=== PATIENT | female | born 1935 | race Caucasian/White ===

== ENCOUNTER → 2020-10-24 18:40 | Outpatient (CLI) | payer MEDICARE ==
[2020-10-24 20:17] LABS: BASOPHILS 0.4 % (0-2); EOSINOPHILS 3.2 % (0-7); HEMOGLOBIN 11.9 g/dL (12-16); IMMATURE GRANULOCYTES 0.5 % (0-5); LYMPHOCYTE ABS# 1.12 10x3/uL (1.18-3.74); LYMPHOCYTES 15.1 % (15-50); MCH 28.7 pg (26.0-34.0); MCHC 31.3 g/dL (31.0-37.0); MCV 91.8 fL (80.0-100.0); MEAN PLATELET VOLUME 12.2 fL (7.4-10.4); MONOCYTES 8.6 % (2-11); NEUTROPHIL ABS# 5.35 10x3/uL (1.56-6.13); NEUTROPHILS 72.2 % (40-80); RBC 4.14 10x6/uL (4.00-5.40); RDW 15.8 % (11.5-14.5); WBC 7.4 10x3/uL (4.8-10.8)
[2020-10-24 20:35] LABS: PLATELET COUNT 343 10x3/uL (130-400)
[2020-10-24 21:29] LABS: ALBUMIN 2.5 g/dL (3.4-5.0); ANION GAP 13.5 mmol/L (8-16); BILIRUBIN - TOTAL 0.3 mg/dL (0.2-1.3); CALCIUM 8.8 mg/dL (8.5-10.1); CARBON DIOXIDE 26.5 mmol/L (21.0-32.0); CREATININE - SERUM 1.1 mg/dL (0.6-1.3); PROTEIN - SERUM 5.7 g/dL (6.4-8.2); THYROID STIMULATING HORMONE 1.83 uIU/mL (0.36-3.74)
== END | disposition home or self-care (01) ==
LOC: D.LABREF 18:40
PROVIDERS: ATTEND Family Medicine
DX: D64.9 Anemia, unspecified (principal); E03.9 Hypothyroidism, unspecified; I25.10 Atherosclerotic heart disease of native coronary artery without angina pectoris; N18.9 Chronic kidney disease, unspecified

== ENCOUNTER → 2020-11-11 17:55 | Outpatient (CLI) | payer MEDICARE ==
[2020-11-11 18:26] LABS: BILIRUBIN NEGATIVE (NEGATIVE); KETONE NEGATIVE (NEGATIVE); NITRITE NEGATIVE (NEGATIVE); UROBILINOGEN NORMAL mg/dL (< 2)
[2020-11-11 18:37] LABS: BACTERIA MODERATE HPF (NONE SEEN); SQUAMOUS EPITHELIAL 0-5 HPF (0-4)
== END | disposition home or self-care (01) ==
LOC: D.LABREF 17:55
PROVIDERS: ATTEND Family Medicine
DX: R30.0 Dysuria (principal)

== ENCOUNTER → 2020-11-15 18:19 | Outpatient (CLI) | payer MEDICARE ==
[2020-11-15 18:54] LABS: BASOPHILS 0.2 % (0-2); EOSINOPHILS 1.9 % (0-7); HEMATOCRIT 37.1 % (36.0-48.0); HEMOGLOBIN 11.8 g/dL (12-16); IMMATURE GRANULOCYTES 0.4 % (0-5); LYMPHOCYTES 9.7 % (15-50); MCH 28.6 pg (26.0-34.0); MCHC 31.8 g/dL (31.0-37.0); MCV 89.8 fL (80.0-100.0); MEAN PLATELET VOLUME 11.1 fL (7.4-10.4); MONOCYTES 7.2 % (2-11); NEUTROPHIL ABS# 9.97 10x3/uL (1.56-6.13); NEUTROPHILS 80.6 % (40-80); PLATELET COUNT 279 10x3/uL (130-400); RBC 4.13 10x6/uL (4.00-5.40); RDW 16.3 % (11.5-14.5); WBC 12.4 10x3/uL (4.8-10.8)
[2020-11-15 18:57] LABS: ALBUMIN 2.3 g/dL (3.4-5.0); ANION GAP 10.3 mmol/L (8-16); BILIRUBIN - TOTAL 0.16 mg/dL (0.2-1.3); CARBON DIOXIDE 28.5 mmol/L (21.0-32.0); CREATININE - SERUM 1.1 mg/dL (0.6-1.3); POTASSIUM - SERUM 3.8 mmol/L (3.5-5.1); PROTEIN - SERUM 5.8 g/dL (6.4-8.2)
== END | disposition home or self-care (01) ==
LOC: D.LABREF 18:19
PROVIDERS: ATTEND Family Medicine
DX: D64.9 Anemia, unspecified (principal); I25.10 Atherosclerotic heart disease of native coronary artery without angina pectoris; N18.9 Chronic kidney disease, unspecified

== ENCOUNTER → 2020-11-21 15:48 | Outpatient (CLI) | payer MEDICARE ==
[2020-11-21 16:04] LABS: BASOPHILS 0.4 % (0-2); EOSINOPHILS 4.4 % (0-7); HEMATOCRIT 35.2 % (36.0-48.0); HEMOGLOBIN 10.9 g/dL (12-16); IMMATURE GRANULOCYTES 0.1 % (0-5); LYMPHOCYTE ABS# 1.42 10x3/uL (1.18-3.74); LYMPHOCYTES 18.8 % (15-50); MCH 28.1 pg (26.0-34.0); MCV 90.7 fL (80.0-100.0); MEAN PLATELET VOLUME 12.2 fL (7.4-10.4); MONOCYTES 6.9 % (2-11); NEUTROPHIL ABS# 5.25 10x3/uL (1.56-6.13); NEUTROPHILS 69.4 % (40-80); PLATELET COUNT 297 10x3/uL (130-400); RBC 3.88 10x6/uL (4.00-5.40); RDW 16.9 % (11.5-14.5); WBC 7.6 10x3/uL (4.8-10.8)
[2020-11-21 16:19] LABS: ALBUMIN 2.1 g/dL (3.4-5.0); ANION GAP 9.7 mmol/L (8-16); BILIRUBIN - TOTAL 0.08 mg/dL (0.2-1.3); CALCIUM 9.2 mg/dL (8.5-10.1); CARBON DIOXIDE 28.8 mmol/L (21.0-32.0); CREATININE - SERUM 0.9 mg/dL (0.6-1.3); POTASSIUM - SERUM 3.5 mmol/L (3.5-5.1); PROTEIN - SERUM 5.4 g/dL (6.4-8.2)
[2020-11-21 16:24] LABS: BILIRUBIN NEGATIVE (NEGATIVE); KETONE NEGATIVE (NEGATIVE); NITRITE POSITIVE (NEGATIVE); UROBILINOGEN NORMAL mg/dL (< 2)
[2020-11-21 16:26] LABS: BACTERIA MANY HPF (NONE SEEN); SQUAMOUS EPITHELIAL 0-5 HPF (0-4)
== END | disposition home or self-care (01) ==
LOC: D.LABREF 15:48
PROVIDERS: Family Medicine
DX: N39.0 Urinary tract infection, site not specified (principal); K63.9 Disease of intestine, unspecified; D64.9 Anemia, unspecified; N18.9 Chronic kidney disease, unspecified

== ENCOUNTER → 2020-12-06 12:07 | Outpatient (CLI) | payer MEDICARE ==
[2020-12-06 13:33] LABS: BILIRUBIN NEGATIVE (NEGATIVE); KETONE NEGATIVE (NEGATIVE); NITRITE NEGATIVE (NEGATIVE); UROBILINOGEN NORMAL mg/dL (< 2)
[2020-12-06 13:34] LABS: BACTERIA MODERATE HPF (NONE SEEN); SQUAMOUS EPITHELIAL 0-5 HPF (0-4)
[2020-12-07 20:00] LABS: HEMATOCRIT 33.6 % (36.0-48.0); HEMOGLOBIN 10.5 g/dL (12-16); MCH 27.6 pg (26.0-34.0); MCHC 31.3 g/dL (31.0-37.0); MCV 88.4 fL (80.0-100.0); MEAN PLATELET VOLUME 12.7 fL (7.4-10.4); NEUTROPHIL ABS# 3.36 10x3/uL (1.56-6.13); PLATELET COUNT 348 10x3/uL (130-400); RDW 16.6 % (11.5-14.5); WBC 6.2 10x3/uL (4.8-10.8)
[2020-12-07 20:41] LABS: EOSINOPHILS 16 % (0-7); LYMPHOCYTES 41 % (15-50); MONOCYTES 15 % (2-11); NEUTROPHILS 28 % (40-80); PLATELET ESTIMATE NORMAL
== END | disposition home or self-care (01) ==
LOC: D.LABREF 12:07
PROVIDERS: ATTEND Family Medicine
DX: R31.9 Hematuria, unspecified (principal)

== ENCOUNTER → 2020-12-07 21:01 | Outpatient (CLI) | payer MEDICARE | END | disposition home or self-care (01) | LOC: D.LABREF 21:01 | PROVIDERS: ATTEND Family Medicine | DX: Z53.9 Procedure and treatment not carried out, unspecified reason (principal) ==

== ENCOUNTER → 2020-12-30 11:16 | Outpatient (CLI) | payer MEDICARE | END | disposition home or self-care (01) | LOC: D.LABREF 11:16 | PROVIDERS: ATTEND Family Medicine | DX: M10.9 Gout, unspecified (principal) ==

== ENCOUNTER → 2021-01-31 20:32 | Outpatient (CLI) | payer MEDICARE ==
[2021-01-31 21:31] LABS: BASOPHILS 0.2 % (0-2); EOSINOPHILS 2.8 % (0-7); HEMATOCRIT 34.5 % (36.0-48.0); HEMOGLOBIN 11.1 g/dL (12-16); LYMPHOCYTES 18.7 % (15-50); MCH 27.7 pg (26.0-34.0); MCHC 32.2 g/dL (31.0-37.0); MCV 85.9 fL (80.0-100.0); MONOCYTES 9.5 % (2-11); NEUTROPHILS 68.8 % (40-80); PLATELET COUNT 301 10x3/uL (130-400); RBC 4.02 10x6/uL (4.00-5.40); RDW 18.6 % (11.5-14.5); WBC 7.7 10x3/uL (4.8-10.8)
[2021-01-31 21:45] LABS: ALBUMIN 2.3 g/dL (3.4-5.0); ANION GAP 12.9 mmol/L (8-16); BILIRUBIN - TOTAL 0.23 mg/dL (0.2-1.3); CALCIUM 8.8 mg/dL (8.5-10.1); CREATININE - SERUM 1.1 mg/dL (0.6-1.3); PROTEIN - SERUM 5.5 g/dL (6.4-8.2)
[2021-01-31 21:51] LABS: POTASSIUM - SERUM 2.9 mmol/L (3.5-5.1)
== END | disposition home or self-care (01) ==
LOC: D.LABREF 20:32
PROVIDERS: ATTEND Family Medicine
DX: R82.90 Unspecified abnormal findings in urine (principal); N39.0 Urinary tract infection, site not specified